=== PATIENT | male | born 1995 | race Caucasian/White ===

== ENCOUNTER 2022-09-02 21:06 | Emergency (ER) | payer MEDICARE, OTHER ==
[2022-09-02 21:12] VITALS: BP 161/117; PULSE 111; RESP 20; TEMP 98.2
--- NOTE | 2022-09-02 21:45 | ED ---
General Adult HPI - General Chief complaint: Psychiatric Symptoms Stated complaint: mental health Time Seen by Provider: 09/02/22 21:23 Source: police Mode of arrival: ambulatory Limitations: no limitations - History of Present Illness Initial comments: Dictation was produced using [employer] dictation software. please excuse any grammatical, word or spelling errors. Chief Complaint: 27-year-old male presents to the emergency department for mental health eval History of Present Illness: Patient is 27-year-old male he has some sort of chronic mental impairment. Apparently he does not want to go back to his mother's house. Mother was concerned because he has not been caring for himself. He has no history of mental illness. Has not been the hospital for mental issues in the past. While 3. Called is brought to the ER for mental health evaluation. Patient is suicidal or homicidal. He does not take any psychiatric medications. according to law enforcement patient has a mental capacity of a 10-year-old. The ROS documented in this emergency department record has been reviewed and confirmed by me. Those systems with pertinent positive or negative responses have been documented in the HPI. All other systems are other negative and/or noncontributory. - Related Data Previous Rx's Medication Instructions Recorded Sulfacetamide 10% Ophth Soln 2 drops LEFT EYE Q6H 7 Days drops 11/24/13 [Bleph-10] Allergies Allergy/AdvReac Type Severity Reaction Status Date / Time No Known Allergies Allergy Verified 09/02/22 21:12 Review of Systems ROS Statement: Those systems with pertinent positive or pertinent negative responses have been documented in the HPI. ROS Other: All systems not noted in ROS Statement are negative. Past Medical History Past Medical History: Hypertension History of Any Multi-Drug Resistant Organisms: None Reported Past Surgical History: No Surgical Hx Reported Past Psychological History: No Psychological Hx Reported Smoking Status: Current every day smoker Past Alcohol Use History: Occasional Past Drug Use History: Marijuana General Exam - General Exam Comments Initial Comments: PHYSICAL EXAM: General Impression: Alert and oriented x3, not in acute distress HEENT: Normocephalic atraumatic, extra-ocular movements intact, pupils equal and reactive to light bilaterally, mucous membranes moist. Cardiovascular: Heart regular rate and rhythm Chest: Able to complete full sentences, no retractions, no tachypnea Abdomen: abdomen soft, non-tender, non-distended, no organomegaly Musculoskeletal: Pulses present and equal in all extremities, no peripheral edema Motor: no focal deficits noted Neurological: CN II-XII grossly intact, no focal motor or sensory deficits noted Skin: Intact with no visualized rashes Psych: Normal affect and mood Limitations: no limitations Course Vital Signs 09/02/22 21:07 Temperature 98.2 F Pulse Rate 111 H Respiratory 20 Rate Blood Pressure 161/117 O2 Sat by Pulse 98 Oximetry Medical Decision Making - Medical Decision Making Was pt. sent in by a medical professional or institution (, PA, CREDIT CARD CLERK, urgent care, hospital, or jail...) When possible be specific @ -No Did you speak to anyone other than the patient for history (EMS, parent, family, police, friend...)? What history was obtained from this source @ -Law enforcement reports that patient has mental capacity of a 10-year-old Did you review nursing and triage notes (agree or disagree)? Why? @ -I reviewed and agree with nursing and triage notes Were old charts reviewed (outside hosp., previous admission, EMS record, old EKG, old radiological studies, urgent care reports/EKG's, jail records)? Report findings @ -No old charts were reviewed Differential Diagnosis (chest pain, altered mental status, abdominal pain women, abdominal pain men, vaginal bleeding, musculoskeletal, weakness, fever, dyspnea, syncope, headache, dizziness, GI bleed, back pain, seizure, CVA, palpatations, mental health)? @ -Differential Mental Health: Depression, anxiety, bipolar, psychosis, schizophrenia, borderline personality, situational depression, adjustment disorder, behavioral disorder, brain tumor, malingering, substance abuse, encephalopathy, medication reaction, dementia, hypothyroidism, degenerative neurologic disorder, lupus.... This is not meant to be all-inclusive list EKG interpreted by me (3pts min.). @ -None done X-rays interpreted by me (1pt min.). @ -None done CT interpreted by me (1pt min.). @ -None done U/S interpreted by me (1pt. min.). @ -None done What testing was considered but not performed or refused? (CT, X-rays, U/S, labs)? Why? @ -None What meds were considered but not given or refused? Why? @ -None Did you discuss the management of the patient with other professionals (professionals i.e. , PA, CREDIT CARD CLERK, lab, RT, psych nurse, social media assistant, armature rewinder, teacher, contract officer, telehealth case manager)? Give summary @ -No Was smoking cessation discussed for >3mins.? @ -No Was critical care preformed (if so, how long)? @ -No Were there social determinants of health that impacted care today? How? (Homelessness, low income, unemployed, alcoholism, drug addiction, transportation, low edu. Level, literacy, decrease access to med. care, snf, rehab)? @ -No Was there de-escalation of care discussed even if they declined (Discuss DNR or withdrawal of care, Hospice)? DNR status @ -No What co-morbidities impacted this encounter? (DM, HTN, Smoking, COPD, CAD, Cancer, CVA, ARF, Chemo, Hep., AIDS, mental health diagnosis, sleep apnea, morbid obesity)? @ -Developmental delay Was patient admitted / discharged? Hospital course, mention meds given and route, prescriptions, significant lab abnormalities, going to OR and other pertinent info. @ -27-year-old male presents emergency department for mental health evaluation. Vital signs stable. Physical examination is benign. Patient medically cleared for EPS evaluation. Patient discharged home with mother was a guardian. Undiagnosed new problem with uncertain prognosis? @ -No Drug Therapy requiring intensive monitoring for toxicity (Heparin, Nitro, Insulin, Cardizem)? @ -No Were any procedures done? @ -No Diagnosis/symptom? Acute, or Chronic, or Acute on Chronic? Uncomplicated (without systemic symptoms) or Complicated (systemic symptoms)? @ -1. Mental health evaluation Side effects of treatment? @ -No Exacerbation, Progression, or Severe Exacerbation? @ -No Poses a threat to life or bodily function? How? (Chest pain, [place], [place], pneumonia, PE, COPD, DKA, ARF, appy, cholecystitis, CVA, Diverticulitis, Homicidal, Suicidal, threat to staff... and all critical care pts) @ -No Disposition Clinical Impression: Adjustment reaction of adult life Disposition: HOME SELF-CARE Condition: Good Is patient prescribed a controlled substance at d/c from ED?: No Referrals: Andres Friedman MD [STAFF PHYSICIAN] - 1-2 days Time of Disposition: 22:28
[2022-09-02] MEDS ORDERED: ALPRAZolam 0.25 MG TAB PO STA (22:38)
--- NOTE | 2022-09-03 01:12 | XR ---
EXAM: XR Right Hand Complete, 3 or More Views CLINICAL HISTORY: ITS.REASON XR Reason: punched wall TECHNIQUE: Frontal, lateral and oblique views of the right hand. COMPARISON: None FINDINGS: Bones/joints: No displaced fracture or dislocation identified. Chronic deformity of the distal aspect of the right fifth middle phalanx with curvature of the right fifth digit. Joint space is maintained. No bony lesion. Soft tissues: Normal. No radiopaque foreign body identified. IMPRESSION: No displaced fracture or dislocation identified.
== END 2022-09-02 23:58 | disposition home or self-care (01) ==
LOC: EC 21:06
DX: F43.20 Adjustment disorder, unspecified (principal); I10 Essential (primary) hypertension; F17.200 Nicotine dependence, unspecified, uncomplicated; F12.90 Cannabis use, unspecified, uncomplicated
CPT/HCPCS: 82075; 99285